=== PATIENT | female | born 1990 | race Caucasian/White ===

== ENCOUNTER 2017-11-21 15:51 | Inpatient (IN) | payer BC ==
[~2017-11-21] VITALS: Ht 162.6 cm; Wt 74.8 kg
[2017-11-21] VITALS (16 sets, daily range): BP systolic 80–125; BP diastolic 50–77
[~2017-11-21 15:51] MED LIST: MOBIC7.5 MG PO; PERCOCET 5/31 TABLET PO
[2017-11-21 16:54] LABS: BASOPHIL (%) 0.1 % (0-1); EOSINOPHIL (%) 0.4 % (0-5); HEMOGLOBIN 11.6 G/DL (11.9-15.5); IMMATURE GRANULOCYTE (%) 0.3 % (0.0-0.7); LYMPHOCYTE (%) 19.8 % (15-42); LYMPHOCYTE COUNT 1.5 K/uL (1.0-2.8); MCH 29.2 PG (29.0-34.0); MCHC 33.1 G/DL (30.0-36.0); MCV 88.2 FL (83-99); MONOCYTE (%) 8.8 % (3-12); MONOCYTE COUNT 0.7 K/uL (0-0.8); NEUTROPHIL (%) 70.6 % (45-76); NEUTROPHIL COUNT 5.4 K/uL (1.8-6.4); PLATELET COUNT 183 K/uL (156-360); RBC DIS.WIDTH-CV 13.3 % (11.8-14.6); RBC DIS.WIDTH-SD 42.6 % (39-53); RED BLOOD COUNT 3.97 M/uL (3.80-5.20); WHITE BLOOD COUNT 7.7 K/uL (4.1-10.2)
[2017-11-21 17:56] LABS: AMPHETAMINE NEGATIVE (500 ng/mL); BARBITURATES NEGATIVE (200 ng/mL); BENZODIAZEPINES NEGATIVE (150 ng/mL); BUPRENORPHINE NEGATIVE (10 ng/mL); COCAINE NEGATIVE (150 ng/mL); METHADONE NEGATIVE (200 ng/mL); METHAMPHETAMINE NEGATIVE (500 ng/mL); OPIATES (MORPHINE) NEGATIVE (100 ng/mL); OXYCODONE NEGATIVE (100 ng/mL); PHENCYCLIDINE NEGATIVE (25 ng/mL); PROPOXYPHENE NEGATIVE (300 ng/mL); THC CANNABINOIDS NEGATIVE (50 ng/mL); TRICYCLIC ANTIDEPRESSANTS NEGATIVE (300 ng/mL)
[2017-11-21] MEDS ORDERED: PRENATABS FA T1 EACH PO (18:02)
[2017-11-21] MEDS ORDERED: NOVOLOG MI100 UNIT/3 SC (18:04)
[2017-11-21] MEDS ORDERED: NOVOLIN N100 UNITS/ SC (18:05)
[2017-11-22] VITALS (11 sets, daily range): BP systolic 81–117; BP diastolic 49–70
[2017-11-22] MEDS ORDERED: IBUPROFEN800 MG PO (02:01)
== END 2017-11-23 17:46 | disposition home or self-care (01) | DRG 775 ==
LOC: LDRP-OP 15:51 → 2WEST 15:52 → LDRP-OP 01-03 13:58
PROVIDERS: Nurse Practitioner; Obstetrics & Gynecology
DX: O70.0 First degree perineal laceration during delivery (principal); O24.424 Gestational diabetes mellitus in childbirth, insulin controlled; Z3A.38 38 weeks gestation of pregnancy; Z37.0 Single live birth
CPT/HCPCS: 82948; 85025; C1755; G0378; J1815; J3010; J7120